=== PATIENT | female | born 1985 | race Caucasian/White ===

== ENCOUNTER 2018-09-23 15:06 | Emergency (ER) | payer OTHER ==
[~2018-09-23] VITALS: Ht 165.1 cm; Wt 70.0 kg
[2018-09-23 15:09] VITALS: TEMP 97.9
[2018-09-23] MEDS ORDERED: LINZESS72 MCG PO (15:13)
[2018-09-23] MEDS ORDERED: MOBIC15 MG PO (15:13)
[2018-09-23] MEDS ORDERED: PREMARIN .3MG0.3 MG PO (15:13)
[2018-09-23] MEDS ORDERED: VOLTAREN GEL 1%1 TU TP (15:44)
[2018-09-23 16:13] LABS: BASO # 0.1 (0.0-0.2); EOS # 0.2 (0.0-0.7); EOS % 2.9 % (0-4.0); GRAN # 3.1 (1.4-6.5); GRAN % 51.1 % (42.2-75.2); HEMATOCRIT 41.8 % (37.0-47.0); HEMOGLOBIN 13.7 g/dl (12.5-16.0); LYMPH # 2.2 (1.2-3.4); LYMPH % 37.1 % (20.0-51.0); MEAN CELL VOLUME 89 fl (80.0-100.0); MEAN CORPUSCULAR HEMOGLOBIN 29 pg (27.0-31.0); MEAN CORPUSCULAR HGB CONC 33 g/dl (33.0-37.0); MEAN PLATELET VOLUME 9.9 fl (7.4-10.4); MONO # 0.5 (0.1-0.6); MONO % 7.6 % (1.7-9.3); PLATELET COUNT 220 K/mm3 (130-400); RED BLOOD COUNT 4.72 M/mm3 (4.10-5.30); REDCELL DISTRIBUTION WIDTH-CV 12.8 % (11.5-14.5)
[2018-09-23 16:23] LABS: ALANINE AMINOTRANSFERASE 24 U/L (9-52); ALBUMIN 4.5 gm/dL (3.5-5.0); ALKALINE PHOSPHATASE 89 U/L (50-136); ANION GAP 5 mmol/L (7-16); AST,SGOT 21 U/L (15-37); BILIRUBIN,TOTAL 0.2 mg/dL (0.0-1.0); BLOOD UREA NITROGEN 14 mg/dL (7-17); CALCIUM 9.6 mg/dL (8.4-10.2); CARBON DIOXIDE 32 mmol/L (22-30); CHLORIDE 105 mmol/L (98-107); CREATININE, serum 0.85 mg/dL (0.52-1.25); GLUCOSE 83 mg/dL (74-106); POTASSIUM 4.7 mmol/L (3.4-5.0); SODIUM 143 mmol/L (137-145); TOTAL PROTEIN 7.3 gm/dL (6.4-8.2)
[2018-09-23 16:32] LABS: C-REACTIVE PROTEIN < 0.5 mg/dL (0.0-0.9); TROPONIN-I < 0.012 ng/mL (0.000-0.034)
[2018-09-23] MEDS ORDERED: NORCO 325 MG-51 TAB PO (16:41)
[2018-09-23 17:00] VITALS: BP 119/70; PULSE 70
== END 2018-09-23 17:00 | disposition home or self-care (01) ==
LOC: COL.ER 15:06
PROVIDERS: Emergency Medicine
DX: M54.12 Radiculopathy, cervical region (principal); M54.6 Pain in thoracic spine; Z90.710 Acquired absence of both cervix and uterus; F17.210 Nicotine dependence, cigarettes, uncomplicated

== ENCOUNTER → 2019-06-28 | Outpatient (CLI) | payer OTHER ==
[~2019-06-28] MED LIST: LINZESS72 MCG PO; MOBIC15 MG PO; NORCO 325 MG-51 TAB PO; PREMARIN .3MG0.3 MG PO; VOLTAREN GEL 1%1 TU TP
== END ==
LOC: MHCPAIN 14:43
DX: G89.29 Other chronic pain (principal); M47.817 Spondylosis without myelopathy or radiculopathy, lumbosacral region; M54.16 Radiculopathy, lumbar region; M53.3 Sacrococcygeal disorders, not elsewhere classified
CPT/HCPCS: G0463

== ENCOUNTER → 2019-07-05 | Outpatient (CLI) | payer OTHER | LOC: MHCPAIN 15:10 | DX: M47.817 Spondylosis without myelopathy or radiculopathy, lumbosacral region (principal); M54.16 Radiculopathy, lumbar region; M53.3 Sacrococcygeal disorders, not elsewhere classified | CPT/HCPCS: G0260; J1040 ==

== ENCOUNTER → 2019-08-10 | Outpatient (CLI) | payer OTHER | LOC: MHCPAIN 13:44 | DX: G89.29 Other chronic pain (principal); M47.817 Spondylosis without myelopathy or radiculopathy, lumbosacral region; M54.16 Radiculopathy, lumbar region; M53.3 Sacrococcygeal disorders, not elsewhere classified | CPT/HCPCS: G0463 ==

== ENCOUNTER → 2019-09-07 | Outpatient (CLI) | payer OTHER ==
[~2019-09-07] MED LIST changes: +CHANTIX 1MG1 MG PO; +LIORESAL 1010 MG/TAB PO; +PLAQUENIL 200M200 MG PO; +PREDNISONE10 MG PO; +ZANTAC 150MG T150 MG PO
== END ==
LOC: MHCPAIN 09:03
DX: M47.817 Spondylosis without myelopathy or radiculopathy, lumbosacral region (principal); M53.3 Sacrococcygeal disorders, not elsewhere classified
CPT/HCPCS: G0463

== ENCOUNTER 2019-11-18 09:07 | Emergency (ER) | payer OTHER ==
[~2019-11-18] VITALS: Ht 165.1 cm; Wt 70.5 kg
[~2019-11-18 09:07] MED LIST changes: -CHANTIX 1MG1 MG PO; -LIORESAL 1010 MG/TAB PO; -PLAQUENIL 200M200 MG PO; -PREDNISONE10 MG PO; -ZANTAC 150MG T150 MG PO
[2019-11-18 09:16] VITALS: BP 123/83; PULSE 91
[2019-11-18] MEDS ORDERED: ZANTAC 150MG T150 MG PO (09:40)
[2019-11-18] MEDS ORDERED: CHANTIX 1MG1 MG PO (09:40)
[2019-11-18] MEDS ORDERED: LIORESAL 1010 MG/TAB PO (09:42)
[2019-11-18] MEDS ORDERED: PLAQUENIL 200M200 MG PO (09:43)
[2019-11-18] MEDS ORDERED: PREDNISONE10 MG PO (09:44)
[2019-11-18 10:09] VITALS: TEMP 98
== END 2019-11-18 10:20 | disposition home or self-care (01) ==
LOC: COL.ER 09:07
DX: M32.9 Systemic lupus erythematosus, unspecified (principal)

== ENCOUNTER → 2019-12-22 | Outpatient (CLI) | payer OTHER ==
[~2019-12-22] MED LIST changes: +CHANTIX 1MG1 MG PO; +LIORESAL 1010 MG/TAB PO; +PLAQUENIL 200M200 MG PO; +PREDNISONE10 MG PO; +ZANTAC 150MG T150 MG PO
== END ==
LOC: MHCPAIN 08:01
DX: M53.3 Sacrococcygeal disorders, not elsewhere classified (principal); M47.817 Spondylosis without myelopathy or radiculopathy, lumbosacral region
CPT/HCPCS: G0463

== ENCOUNTER 2020-02-13 20:41 | Emergency (ER) | payer OTHER ==
[~2020-02-13] VITALS: Ht 165.1 cm; Wt 70.5 kg
[2020-02-13 20:45] VITALS: TEMP 98.2
[2020-02-13 21:23] LABS: BASO # 0.1 (0.0-0.2); EOS # 0.3 (0.0-0.7); EOS % 3.9 % (0-4.0); GRAN # 3.2 (1.4-6.5); GRAN % 44.6 % (42.2-75.2); HEMATOCRIT 41.9 % (37.0-47.0); LYMPH # 3.1 (1.2-3.4); LYMPH % 43.7 % (20.0-51.0); MEAN CELL VOLUME 86 fl (80.0-100.0); MEAN CORPUSCULAR HEMOGLOBIN 29 pg (27.0-31.0); MEAN CORPUSCULAR HGB CONC 33 g/dl (33.0-37.0); MEAN PLATELET VOLUME 10.2 fl (7.4-10.4); MONO # 0.5 (0.1-0.6); MONO % 6.7 % (1.7-9.3); PLATELET COUNT 213 K/mm3 (130-400); RED BLOOD COUNT 4.86 M/mm3 (4.10-5.30); REDCELL DISTRIBUTION WIDTH-CV 12.4 % (11.5-14.5)
[2020-02-13 21:45] LABS: ALANINE AMINOTRANSFERASE 19 U/L (4-34); ALBUMIN 4.7 gm/dL (3.5-5.0); ALKALINE PHOSPHATASE 118 U/L (50-136); ANION GAP 9 mmol/L (7-16); AST,SGOT 25 U/L (15-37); BILIRUBIN,TOTAL 0.2 mg/dL (0.0-1.0); BLOOD UREA NITROGEN 10 mg/dL (7-17); CALCIUM 9.6 mg/dL (8.4-10.2); CARBON DIOXIDE 26 mmol/L (22-30); CHLORIDE 105 mmol/L (98-107); CREATININE, serum 0.64 (0.52-1.25); GLUCOSE 110 mg/dL (74-106); LIPASE 97 U/L (23-300); POTASSIUM 3.6 mmol/L (3.4-5.0); SODIUM 140 mmol/L (137-145); TOTAL PROTEIN 7.7 gm/dL (6.4-8.2)
[2020-02-13 21:54] LABS: C-REACTIVE PROTEIN < 0.5 mg/dL (0.0-0.9)
[2020-02-13 21:58] LABS: TROPONIN-I < 0.012 ng/mL (0.000-0.035)
[2020-02-13] MEDS ORDERED: ATIVAN 0.50.5 MG/TAB PO (23:46)
[2020-02-13 23:59] VITALS: BP 122/83; PULSE 73
== END 2020-02-13 23:59 | disposition home or self-care (01) ==
LOC: COL.ER 20:41
PROVIDERS: Nurse Practitioner
DX: F41.9 Anxiety disorder, unspecified (principal); R07.9 Chest pain, unspecified; F17.210 Nicotine dependence, cigarettes, uncomplicated; Z88.2 Allergy status to sulfonamides
CPT/HCPCS: J1885; J2060; J2270; J7030

== ENCOUNTER → 2020-03-06 | Outpatient (CLI) | payer OTHER ==
[~2020-03-06] MED LIST changes: +ATIVAN 0.50.5 MG/TAB PO
== END ==
LOC: MHCPAIN 09:36
DX: M47.817 Spondylosis without myelopathy or radiculopathy, lumbosacral region (principal); M54.5 Low back pain; M54.16 Radiculopathy, lumbar region; G89.29 Other chronic pain
CPT/HCPCS: G0463

== ENCOUNTER → 2020-03-22 | Outpatient (CLI) | payer OTHER | LOC: MHCPAIN 09:30 | DX: M47.817 Spondylosis without myelopathy or radiculopathy, lumbosacral region (principal); M54.5 Low back pain; M53.3 Sacrococcygeal disorders, not elsewhere classified ==

== ENCOUNTER → 2020-06-07 | Outpatient (CLI) | payer OTHER | LOC: MHCPAIN 07:57 | DX: M47.817 Spondylosis without myelopathy or radiculopathy, lumbosacral region (principal); M54.5 Low back pain; M53.3 Sacrococcygeal disorders, not elsewhere classified; G89.29 Other chronic pain | CPT/HCPCS: G0463; J1100; J2250; J3010 ==

== ENCOUNTER → 2020-08-07 | Outpatient (CLI) | payer OTHER | LOC: MHCPAIN 13:58 | DX: M47.817 Spondylosis without myelopathy or radiculopathy, lumbosacral region (principal); M53.3 Sacrococcygeal disorders, not elsewhere classified; M54.5 Low back pain; G89.29 Other chronic pain | CPT/HCPCS: G0463 ==

== ENCOUNTER 2021-06-12 22:45 | Emergency (ER) | payer OTHER ==
[~2021-06-12] VITALS: Ht 162.6 cm; Wt 76.4 kg
[2021-06-12 23:55] LABS: BASO # 0.1 (0.0-0.2); EOS # 0.3 (0.0-0.7); EOS % 4.2 % (0-4.0); GRAN # 2.6 (1.4-6.5); GRAN % 40.6 % (42.2-75.2); HEMATOCRIT 39.3 % (37.0-47.0); HEMOGLOBIN 13.3 g/dl (12.5-16.0); LYMPH # 2.9 (1.2-3.4); LYMPH % 45.7 % (20.0-51.0); MEAN CELL VOLUME 86 fl (80.0-100.0); MEAN CORPUSCULAR HEMOGLOBIN 29 pg (27.0-31.0); MEAN CORPUSCULAR HGB CONC 34 g/dl (33.0-37.0); MONO # 0.5 (0.1-0.6); MONO % 8.3 % (1.7-9.3); PLATELET COUNT 229 K/mm3 (130-400); RED BLOOD COUNT 4.55 M/mm3 (4.10-5.30); REDCELL DISTRIBUTION WIDTH-CV 12.8 % (11.5-14.5)
[2021-06-13 00:13] LABS: ERYTHROCYTE SEDIMENTATION RATE 5 mm/hr (0-20)
[2021-06-13 00:29] LABS: ALANINE AMINOTRANSFERASE 26 U/L (4-34); ALBUMIN 4.5 gm/dL (3.5-5.0); ALKALINE PHOSPHATASE 108 U/L (50-136); ANION GAP 9 mmol/L (7-16); AST,SGOT 25 U/L (15-37); BILIRUBIN,TOTAL 0.3 mg/dL (0.0-1.0); BLOOD UREA NITROGEN 14 mg/dL (7-17); C-REACTIVE PROTEIN < 0.5 mg/dL (0.0-0.9); CALCIUM 9.6 mg/dL (8.4-10.2); CARBON DIOXIDE 28 mmol/L (22-30); CHLORIDE 106 mmol/L (98-107); GLUCOSE 130 mg/dL (74-106); POTASSIUM 3.8 mmol/L (3.4-5.0); SODIUM 143 mmol/L (137-145); TOTAL PROTEIN 7.1 gm/dL (6.4-8.2)
[2021-06-13 00:38] LABS: TROPONIN-I < 0.012 ng/mL (0.000-0.035)
[2021-06-13 01:20] VITALS: BP 143/78; PULSE 79; TEMP 98.7
== END 2021-06-13 01:20 | disposition home or self-care (01) ==
LOC: COL.ER 22:45
PROVIDERS: Emergency Medicine
DX: R07.89 Other chest pain (principal); R00.2 Palpitations; M32.9 Systemic lupus erythematosus, unspecified; Z86.79 Personal history of other diseases of the circulatory system; Z79.899 Other long term (current) drug therapy
CPT/HCPCS: J7030

== ENCOUNTER → 2021-07-10 | Outpatient (CLI) | payer OTHER | LOC: MHCPAIN 11:27 | DX: M47.817 Spondylosis without myelopathy or radiculopathy, lumbosacral region (principal); M54.50 Low back pain, unspecified; M53.3 Sacrococcygeal disorders, not elsewhere classified | CPT/HCPCS: G0463 ==

== ENCOUNTER → 2021-07-22 | Outpatient (CLI) | payer OTHER | LOC: MHCPAIN 12:20 | DX: M47.817 Spondylosis without myelopathy or radiculopathy, lumbosacral region (principal); M54.50 Low back pain, unspecified; M53.3 Sacrococcygeal disorders, not elsewhere classified | CPT/HCPCS: J1100; J2250; J3010 ==

== ENCOUNTER → 2021-09-17 | Outpatient (CLI) | payer OTHER | LOC: MHCPAIN 08:59 | DX: M54.50 Low back pain, unspecified (principal); M53.3 Sacrococcygeal disorders, not elsewhere classified; M54.32 Sciatica, left side | CPT/HCPCS: G0463 ==

== ENCOUNTER → 2021-10-09 | Outpatient (CLI) | payer OTHER | LOC: MHCPAIN 10:08 | DX: M79.18 Myalgia, other site (principal); M53.3 Sacrococcygeal disorders, not elsewhere classified; M54.50 Low back pain, unspecified | CPT/HCPCS: J1040 ==

== ENCOUNTER 2021-12-08 19:44 | Emergency (ER) | payer OTHER ==
[~2021-12-08] VITALS: Ht 165.1 cm; Wt 75.0 kg
[2021-12-08 19:48] VITALS: TEMP 97
[2021-12-08] MEDS ORDERED: PREDNISONE20 MG PO (20:39)
[2021-12-08] MEDS ORDERED: FLEXERIL 1010 MG/TAB PO (20:39)
[2021-12-08] MEDS ORDERED: NORCO 325 MG-51 TAB PO (20:39)
[2021-12-08 21:54] VITALS: BP 127/82; PULSE 69
== END 2021-12-08 21:54 | disposition home or self-care (01) ==
LOC: COL.ER 19:44
DX: R05.9 Cough, unspecified (principal)
CPT/HCPCS: J2270; J2360; J7512

== ENCOUNTER 2022-04-30 22:07 | Emergency (ER) | payer OTHER ==
[~2022-04-30] VITALS: Ht 165.1 cm; Wt 77.3 kg
[~2022-04-30 22:07] MED LIST changes: +FLEXERIL 1010 MG/TAB PO; +PREDNISONE20 MG PO
[2022-04-30] MEDS ORDERED: FLEXERIL 1010 MG/TAB PO (22:57)
[2022-04-30] MEDS ORDERED: TORADOL 10MG TA10 MG PO (22:57)
[2022-04-30 23:08] VITALS: BP 129/86; PULSE 86; TEMP 98.4
== END 2022-04-30 23:08 | disposition home or self-care (01) ==
LOC: COL.ER 22:07
DX: M62.830 Muscle spasm of back (principal); M62.838 Other muscle spasm
CPT/HCPCS: J1885

== ENCOUNTER → 2023-07-13 | Outpatient (CLI) | payer OTHER ==
[~2023-07-13] MED LIST changes: +ADDERALL XR20 MG; +ALDACTONE 25MG25 M1; +TORADOL 10MG TA10 MG PO
== END ==
LOC: MHCPAIN 08:02
DX: M54.32 Sciatica, left side (principal); M25.552 Pain in left hip; M54.50 Low back pain, unspecified
CPT/HCPCS: G0463

== ENCOUNTER → 2024-01-27 | Outpatient (CLI) | payer OTHER | LOC: MHCPAIN 08:10 | DX: M47.896 Other spondylosis, lumbar region (principal); M25.552 Pain in left hip | CPT/HCPCS: G0463 ==

== ENCOUNTER → 2024-02-11 | Outpatient (CLI) | payer OTHER | LOC: MHCPAIN 08:00 | DX: M54.50 Low back pain, unspecified (principal); M47.817 Spondylosis without myelopathy or radiculopathy, lumbosacral region ==

== ENCOUNTER 2024-05-08 23:10 | Emergency (ER) | payer OTHER ==
[~2024-05-08] VITALS: Ht 165.1 cm; Wt 80.5 kg
[2024-05-08 23:15] VITALS: BP 127/75; TEMP 98.4
[2024-05-09 00:23] VITALS: PULSE 70
== END 2024-05-09 00:28 | disposition home or self-care (01) ==
LOC: COL.ER 23:10
DX: S61.211A Laceration without foreign body of left index finger without damage to nail, initial encounter (principal); F17.210 Nicotine dependence, cigarettes, uncomplicated; W27.8XXA Contact with other nonpowered hand tool, initial encounter

== ENCOUNTER 2024-07-23 19:03 | Emergency (ER) | payer OTHER ==
[~2024-07-23] VITALS: Ht 165.1 cm; Wt 79.5 kg
[2024-07-23 19:08] VITALS: TEMP 98.2
[2024-07-23] MEDS ORDERED: fentaNYL 50 MCG/ML 2 ML VIAL IV ONE (19:45)
[2024-07-23] MEDS ORDERED: NS 1,000 ML IV ONE (19:45)
[2024-07-23 20:00] LABS: BASO # 0.1 K/mm3 (0.0-0.2); BASO % 0.9 % (0.0-2.0); EOS # 0.1 K/mm3 (0.0-0.7); EOS % 1.8 % (0.0-4.0); GRAN # 3.6 K/mm3 (1.4-6.5); GRAN % 53.1 % (42.2-75.2); HEMOGLOBIN 13.4 g/dl (12.5-16.0); LYMPH # 2.6 K/mm3 (1.2-3.4); LYMPH % 38.3 % (20.0-51.0); MEAN CELL VOLUME 88 fl (80.0-100.0); MEAN CORPUSCULAR HEMOGLOBIN 29 pg (27-31); MEAN CORPUSCULAR HGB CONC 34 g/dl (33.0-37.0); MEAN PLATELET VOLUME 10.5 fl (7.4-10.4); MONO # 0.4 K/mm3 (0.1-0.6); MONO % 5.8 % (1.7-9.3); PLATELET COUNT 216 K/mm3 (130-400); RED BLOOD COUNT 4.56 M/mm3 (4.10-5.30)
[2024-07-23 20:13] LABS: ALBUMIN 4.4 g/dL (3.5-5.0); BILIRUBIN,TOTAL 0.2 mg/dL (0.2-1.2); CALCIUM 9.2 mg/dL (8.4-10.2); CREATININE, serum 0.78 mg/dL (0.57-1.11); POTASSIUM 3.6 mEq/L (3.5-4.5); TOTAL PROTEIN 7.2 g/dl (6.2-8.1)
[2024-07-23 20:19] LABS: TROPONIN-I 0.021 ng/mL (0.00-0.033)
[2024-07-23 20:19] LABS: COLLECTION METHOD CLEAN CATCH
[2024-07-23 20:28] LABS: URINE APPEARANCE CLEAR (CLEAR/HAZY); URINE BLOOD NEGATIVE (NEGATIVE); URINE COLOR YELLOW (YELLOW); URINE GLUCOSE NEGATIVE (NEGATIVE); URINE KETONE NEGATIVE (NEGATIVE); URINE NITRATE NEGATIVE (NEGATIVE); URINE PROTEIN(semi-quant) NEGATIVE (NEGATIVE); URINE UROBILINOGEN 0.2 E.U/dL (0.2-1.0)
[2024-07-23 21:03] LABS: THYROID STIMULATING HORMONE 3.21 uIU/mL (0.350-4.940)
[2024-07-23 21:45] VITALS: BP 120/83; PULSE 75
[2024-07-23] MEDS ORDERED: PEPCID 20MG TAB20 MG PO (21:48)
[2024-07-23] MEDS ORDERED: ZOFRAN ODT4 MG PO (21:49)
[2024-07-23] MEDS ORDERED: NORCO 325 MG-51 TAB PO (21:49)
[2024-07-23] MEDS ORDERED: Ondansetron 4 MG/2 ML VIAL IV ONE (22:00)
== END 2024-07-23 22:00 | disposition home or self-care (01) ==
LOC: COL.ER 19:03
PROVIDERS: Family Medicine
DX: R10.13 Epigastric pain (principal); R07.9 Chest pain, unspecified
CPT/HCPCS: J3010; J7030